=== PATIENT | male | born 1960 | race Caucasian/White ===

== ENCOUNTER 2017-07-22 08:52 | Outpatient (CLI) | payer MEDICARE | END 2017-07-22 08:53 | disposition home or self-care (01) | LOC: BICRAD 08:52 | PROVIDERS: ATTEND Family Medicine | DX: M25.551 Pain in right hip (principal); M16.11 Unilateral primary osteoarthritis, right hip ==

== ENCOUNTER 2018-04-16 07:03 | Day surgery (SDC) | payer MEDICARE ==
[2018-04-16] MEDS ORDERED: HYDROcodone/Acetaminophen 5/325 mg Tablet ONE (07:42)
--- NOTE | 2018-04-16 08:56 | RAD ---
LUMBAR SPINE 4 VIEWS: HISTORY: Low back pain. COMPARISON: 09/23/17. FINDINGS: Five lumbar-type vertebrae. Chronic partial compression of the L2 vertebral body is stable compared to the 09/23/17 exam. Other vertebral body heights are maintained. Minimal degenerative retrolisthesi s at the L2-3 ad L3-4 levels without abnormal translational motion upon flexion or extension, althoug h there is very little movement. Osteophytosis throughout the vertebral bodies and facets. Calcification over the calvarial structure s. Calcification over the arterial structures. IMPRESSION: 1. Partial compression of L2 vertebral body, stable. Partial compression of T11 vertebral body is s table compared to CT exam from 2011. 2. Lumbar spondylosis. 3. Atherosclerosis. POS: [facility]
--- NOTE | 2018-04-16 10:30 | RAD ---
LUMBAR MYELOGRAM: Date: 04/16/18 HISTORY: Back and bilateral leg pain. FINDINGS: After informed consent was obtained, the patient was prepped and draped in the normal sterile fashion . Local anesthesia was obtained with 1% Xylocaine. A L4-5 puncture was performed with a 5 22 gauge needle. A few drops of clear CSF fluid were obtained and subsequently 12 mL of Isovue-200 myelograph ic contrast were injected intrathecally with good opacification of the joint space. The patient miguel ated the procedure well. There were no immediate complications. IMPRESSION: Successful lumbar myelogram. Please see CT concerning findings. POS: [facility]
[2018-04-16] MEDS ORDERED: Iopamidol-M 200 41% 20 ML VIAL ONE (10:43)
--- NOTE | 2018-04-16 10:53 | CT ---
POSTMYELOGRAM CT OF THE LUMBAR SPINE PERFORMED WITH CONTRAST ENHANCEMENT: HISTORY: Back and bilateral leg pain. There are some mild compression changes of the superior end plate of L2 without bony retropulsion. T here are also moderate compression changes of the T11 vertebral body. The remainder of the vertebral bodies are normal in height. Disk spaces are all relatively well preserved with some disk narrowing at L1-2. T10-11: No evidence of bony retropulsion associated with the compression change at this level. T11-12: Unremarkable. T12-L1: Unremarkable. L1-2: No canal or foraminal stenosis. L2-3: No disk bulge, no canal or foraminal stenosis. L3-4: No significant disk bulge. Mild facet hypertrophic changes. No foraminal narrowing. L4-5: No significant canal or foraminal stenosis at this level. L5-S1: Degenerative facet changes without significant canal or foraminal stenosis. IMPRESSION: No signs of disk herniation or evidence of any significant canal or foraminal stenosis at any of the vertebral body levels. POS: [facility]
== END 2018-04-16 10:00 | disposition home or self-care (01) ==
LOC: RAD 07:03
PROVIDERS: ATTEND Physician Assistant Surgical
DX: M47.26 Other spondylosis with radiculopathy, lumbar region (principal); I70.90 Unspecified atherosclerosis; Z88.0 Allergy status to penicillin
CPT/HCPCS: 62304; 72110; 72132

== ENCOUNTER 2018-06-24 08:35 | Outpatient (CLI) | payer MEDICARE ==
--- NOTE | 2018-06-24 14:46 | NM ---
WHOLE BONE SCAN: DATE: 06/24/2018. COMPARISON: None. HISTORY: Back pain, wedge compression fracture of lumbar spine. TECHNIQUE: Anterior and posterior whole body imaging obtained following the intravenous administration of 31.7 m Ci Technetium 99m labeled MDP. FINDINGS: There is physiologic activity overlying the kidneys and urinary bladder. No focal area of abnormal r adiotracer activity overlies the spine. There is degenerative-type change involving the acetabular r chanda on the right. There is degenerative activity overlying the left knee and the right ankle. No ca lvarial lesions or rib lesions. IMPRESSION: Findings suggesting degenerative activity at the level of the right hip, right ankle, and left knee, which could be further assessed via radiographs. POS: [facility]
== END 2018-06-24 08:36 | disposition home or self-care (01) ==
LOC: NM 08:35
PROVIDERS: ATTEND Specialist
DX: M48.56XA Collapsed vertebra, not elsewhere classified, lumbar region, initial encounter for fracture (principal); M48.54XA Collapsed vertebra, not elsewhere classified, thoracic region, initial encounter for fracture
CPT/HCPCS: 78306; A9503

== ENCOUNTER 2018-11-04 13:17 | Outpatient (CLI) | payer MEDICARE ==
--- NOTE | 2018-11-04 14:32 | RAD ---
3 VIEWS LUMBAR SPINE: Date: 11/04/18 HISTORY: Closed compression fracture second lumbar vertebra. FINDINGS: Flexion, extension, and lateral views lumbar spine obtained. Comparison made to previous exam from 04/16/18. Flexion, extension, and neutral weightbearing views of lumbar spine demonstrate a stable compression fracture of the L2 level. This is unchanged since the previous exam from 04/16/18. No evidence of zackery or retrolisthesis seen on flexion or extension views. Anterior osteophytes also seen anterior to the L1 and L2 levels. IMPRESSION: Stable L2 compression fracture. POS: [facility]
== END 2018-11-04 13:18 | disposition home or self-care (01) ==
LOC: BICRAD 13:17
PROVIDERS: ATTEND Specialist
DX: S32.020A Wedge compression fracture of second lumbar vertebra, initial encounter for closed fracture (principal)
CPT/HCPCS: 72110

== ENCOUNTER 2019-02-28 08:49 | Outpatient (CLI) | payer MEDICARE ==
--- NOTE | 2019-02-28 10:24 | ULT ---
VENOUS DOPPLER ULTRASOUND OF THE RIGHT LOWER EXTREMITY: HISTORY: Right leg pain. Right calf pain, edema, and redness. TECHNIQUE: Murphy scale ultrasound with color flow and spectral Doppler imaging of the deep venous system of the r ight lower extremity was performed. FINDINGS: There is good flow, compression, and augmentation in the right common femoral, femoral, deep femoral, popliteal, posterior tibial, and greater saphenous veins. IMPRESSION: No evidence of deep vein thrombosis in the right lower extremity. POS: [facility]
== END 2019-02-28 08:50 | disposition home or self-care (01) ==
LOC: ULT 08:49
PROVIDERS: ATTEND Specialist
DX: I82.5Z1 Chronic embolism and thrombosis of unspecified deep veins of right distal lower extremity (principal)
CPT/HCPCS: 80306

== ENCOUNTER 2019-04-20 09:34 | Outpatient (CLI) | payer MEDICARE ==
--- NOTE | 2019-04-20 12:07 | CT ---
CTA ABDOMEN AND PELVIS AND LOWER EXTREMITIES WITH CONTRAST: Date: 04/20/19 Axial tomograms obtained following angio protocol with multiplanar reconstruction and 3D postprocessi ng. INDICATION: Peripheral vascular disease. Bilateral leg pain. FINDINGS: The abdominal aorta shows mild atherosclerotic change. No aneurysm or dissection. No stenosis seen at the origin of the celiac artery or superior mesenteric artery. Both renal arteries are patent withou t stenosis. Aortic bifurcation is patent with moderate atherosclerotic changes seen in both common iliac arteries . There is a stent in the left common iliac which appears patent. No evidence of significant stenosis . Left Lower Extremity: Left internal and external iliacs are patent without stenosis. Left common femoral unremarkable. Prof unda patent. Left superficial femoral artery is patent without evidence of significant atherosclerotic disease or stenosis. Left popliteal is unremarkable. Popliteal trifurcates below the knee and there is 3 vessel runoff to the ankle. Right Lower Extremity: Right internal and external iliacs are unremarkable. Right common femoral unremarkable. Right profunda patent. Right superficial femoral artery shows mild atherosclerotic disease without si gnificant stenosis. Right popliteal unremarkable. Popliteal trifurcates below the knee space and ther e is 3 vessel runoff to the right ankle. Soft Tissues: Lung bases clear. Liver, spleen, and pancreas are unremarkable. Adrenal glands and kidneys are unremarkable. Bowel loops unremarkable. IMPRESSION: Mild atherosclerotic changes seen in abdominal aorta and common iliac arteries. The left iliac artery stent appears patent. No significant stenosis identified. POS: [facility]
[2019-04-20] MEDS ORDERED: ISOVUE-370 76%-LOCM 1 ML ONE (20:37)
== END 2019-04-20 09:35 | disposition home or self-care (01) ==
LOC: BICCT 09:34
PROVIDERS: ATTEND Family Medicine
DX: I73.9 Peripheral vascular disease, unspecified (principal); M25.552 Pain in left hip; M25.551 Pain in right hip
CPT/HCPCS: 75635; Q9966

== ENCOUNTER 2019-05-24 11:23 | Day surgery (SDC) | payer MEDICARE ==
[2019-05-23 10:30] VITALS: BMI 40.1
[2019-05-24] MEDS ORDERED: Levofloxacin 500 mg/D5W 100 ml Premix Bag ONE (12:26)
[2019-05-24] MEDS ORDERED: Bupivacaine HCl 0.5%/Epinephrine 1:200,000/PF 30 ml Vial ONE (13:28)
[2019-05-24] MEDS ORDERED: Propofol 500 MG/50 ML VIAL ONE (13:41)
[2019-05-24] MEDS ORDERED: Fentanyl 100 MCG/2 ML VIAL ONE (13:44)
--- NOTE | 2019-05-24 20:03 | OP ---
DATE OF PROCEDURE: 05/24/2019 PREOPERATIVE DIAGNOSES: 1. Chronic pain syndrome. 2. Lumbar radiculopathy. POSTOPERATIVE DIAGNOSES: 1. Chronic pain syndrome. 2. Lumbar radiculopathy. PROCEDURE PERFORMED: SCS battery exchange. SPECIMENS REMOVED: Spinal cord stimulator battery generator x1 intact. BLOOD LOSS: Minimal. DESCRIPTION OF PROCEDURE: The patient was taken to the procedure room, placed prone on the procedure room table. A time-out was performed. We prepped the back with DuraPrep. Sterile drapes were applied. We anesthetized the skin above the battery site with 0.5% Marcaine with epinephrine. We used a 15 blade scalpel to make an incision and then blunt dissected this down to the battery pocket. The battery was removed. We used a torque wrench to loosen the battery from the leads. The leads were taken out. The battery was discarded. We got the new battery and connected the leads to it and tightened the leads with the torque wrench. Impedances were checked which were all good. We slipped the battery in the pocket easily. We approximated the fascial layer with 2-0 Vicryl suture in simple interrupted fashion. We used [place] for the skin. This was dressed with a sterile 4 x 4 and Medipore tape. The patient was taken to Day Stay under stable condition with no apparent complications noted at this time. Job ID: [id number]
== END 2019-05-24 15:35 | disposition home or self-care (01) ==
LOC: SDC 11:23
PROVIDERS: ATTEND Specialist
PROC: 0JPT0MZ Removal of Stimulator Generator from Trunk Subcutaneous Tissue and Fascia, Open Approach (ICD-10-PCS; principal; 2019-05-24)
PROC: 0JH70MZ Insertion of Stimulator Generator into Back Subcutaneous Tissue and Fascia, Open Approach (ICD-10-PCS; 2019-05-24)
DX: G89.4 Chronic pain syndrome (principal); M54.16 Radiculopathy, lumbar region; M19.90 Unspecified osteoarthritis, unspecified site; J44.9 Chronic obstructive pulmonary disease, unspecified; N40.0 Benign prostatic hyperplasia without lower urinary tract symptoms; F32.9 Major depressive disorder, single episode, unspecified; G47.30 Sleep apnea, unspecified; Z79.82 Long term (current) use of aspirin; Z79.899 Other long term (current) drug therapy; Z88.0 Allergy status to penicillin; Z88.1 Allergy status to other antibiotic agents; Z98.84 Bariatric surgery status
CPT/HCPCS: J0670; J1956; J2704; J3010

== ENCOUNTER 2019-06-28 09:46 | Inpatient (IN) | payer MEDICARE ==
[2019-06-27 15:59] VITALS: BMI 36.8
[~2019-06-28 09:46] MED LIST: Esmolol 100 MG/10 ML VIAL ONE; Lidocaine 1% PF 5 ML VIAL ONE; Ondansetron PF 4 MG/2 ML Vial ONE; PROPOFOL 200 MG/20 ML VIAL ONE; Rocuronium Bromide 10 MG/ML (10ML VIAL) ONE; Succinylcholine Chloride 20 MG/ML 10 ml SYRINGE FS ONE; ePHEDrine/0.9% NaCl/PF SYRINGE 50 mg/10 ml ONE
[2019-06-28] MEDS ORDERED: Fentanyl 100 MCG/2 ML VIAL ONE ×3 (10:33→15:28)
[2019-06-28] MEDS ORDERED: EPINEPHrine 1 MG/ML AMP ONE (10:48)
[2019-06-28] MEDS ORDERED: Bupivacaine PF 0.5% 30 ML VIAL ONE (10:48)
[2019-06-28] MEDS ORDERED: Levofloxacin 500 mg/D5W 100 ml Premix Bag ONE (11:56)
[2019-06-28] MEDS ORDERED: Propofol 500 MG/50 ML VIAL ONE (11:58)
[2019-06-28] MEDS ORDERED: Midazolam HCl 2 mg/2 ml Vial ONE (12:21)
[2019-06-28] MEDS ORDERED: Ketamine 50 MG/ML (10ML VIAL) ONE (12:21)
--- NOTE | 2019-06-28 12:24 | PRG ---
DATE OF SERVICE: 06/28/2019 Mr. Cooney is known to my colleague, Dr. Sheets. He had a spinal cord stimulator placed a few weeks ago. He has developed fluctuance in his pulse generator pocket and as such, there is concern about possible infection. Dr. Sheets and I have discussed his case. There was question regarding the benefit of removal of his leads in generator. I will assist in this regard. Job ID: [id number]
[2019-06-28] MEDS ORDERED: Neomycin-Polymyxin 1 ML AMP ONE (13:16)
[2019-06-28] MEDS ORDERED: Fleet Enema 133 ML BOT PR PRN (14:06)
[2019-06-28] MEDS ORDERED: Bisacodyl 10 MG SUPP PR PRN (14:06)
[2019-06-28] MEDS ORDERED: HYDROcodone/Acetaminophen 10/325 mg Tablet PO PRN (14:06)
[2019-06-28] MEDS ORDERED: Mag-Al 1200 mg/1200 mg/30 ML UDCUP PO PRN (14:06)
[2019-06-28] MEDS ORDERED: Acetaminophen 325 MG TAB PO PRN (14:06)
[2019-06-28] MEDS ORDERED: Milk Of Magnesia 30 ML UDCUP PO PRN (14:06)
[2019-06-28] MEDS ORDERED: Promethazine HCl 25 MG/ML VIAL IM/IV PRN (15:05)
[2019-06-28] MEDS ORDERED: PACU-Morphine 4MG/ML VIAL SLOW IVP PRN (15:05)
[2019-06-28] MEDS ORDERED: Morphine Sulfate 2 MG/ML SYRINGE SLOW IVP PRN (15:05)
[2019-06-28] MEDS ORDERED: Non-Formulary Medication 1 EACH PO PRN (15:05)
[2019-06-28] MEDS ORDERED: Ondansetron HCl/PF 4 MG/2 ML Vial IVP PRN (15:05)
[2019-06-28] MEDS: Sodium Chloride 0.9% 1,000 ML IV SCH (17:29)
[2019-06-28] MEDS: HYDROcodone/Acetaminophen 10/325 mg Tablet PO PRN ×2 (17:34→22:21)
[2019-06-28] MEDS: Cefepime 2 GM in Sodium Chloride 0.9% 100 ML IVPB SCH (22:22)
[2019-06-28] MEDS: metroNIDAZOLE 500 MG in Premix Bag 1 BAG IVPB SCH (23:04)
--- NOTE | 2019-06-28 23:52 | OP ---
DATE OF PROCEDURE: 06/28/2019 PROCEDURE: Urgent removal of spinal cord stimulator battery as well as paddle leads due to infection. PREOPERATIVE DIAGNOSES: 1. Chronic pain syndrome. 2. Lumbar radiculopathy. 3. Abscess. POSTOPERATIVE DIAGNOSES: 1. Chronic pain syndrome. 2. Lumbar radiculopathy. 3. Abscess. CO-SURGEON: Dr. Charlton. PROCEDURES: 1. Removal of spinal cord stimulator battery. 2. Removal of paddle lead. PROCEDURE IN DETAIL: The patient was taken to the procedure room, placed prone on the procedure room table. A time-out was performed. We prepped the back with DuraPrep and sterile drapes were applied. We anesthetized the skin above the paddle lead and Dr. Charlton proceeded to remove the paddle lead. Please refer to Dr. Charlton's operative note for that portion. He cut the lead at that level. We then proceeded to open the battery pocket using a 10 blade scalpel. Suction was used to remove the purulent fluid. The battery was removed easily and we took the lead wires out with it. We then irrigated the pocket copiously with bacitracin saline. We then made several incisions through the scar tissue in the pocket to allow adequate blood flow. We placed vancomycin powder 500 mg inside the pocket. We then used 2-0 Vicryl suture to approximate the fascial layers and 3-0 nylon and a vertical mattress was used for the skin. A Jc-Devine drain was placed as well at this level. The patient was taken to PACU under stable condition. Job ID: [id number]
[2019-06-29] MEDS: HYDROcodone/Acetaminophen 10/325 mg Tablet PO PRN ×5 (04:43→21:18)
[2019-06-29] MEDS: metroNIDAZOLE 500 MG in Premix Bag 1 BAG IVPB SCH (04:44)
[2019-06-29] MEDS: Sodium Chloride 0.9% 1,000 ML IV SCH (08:10)
[2019-06-29] MEDS: tiZANidine HCl 4 MG TAB PO PRN ×2 (08:11→21:30)
--- NOTE | 2019-06-29 08:26 | OP ---
DATE OF PROCEDURE: 06/28/2019 SUPERVISOR [employer] MAN[employer]FACTURE: Luis Vargas PA-C. Note that I did this surgery in conjunction with Dr. Michael Sheets. PREPROCEDURE DIAGNOSIS: Concern of spinal cord stimulator battery pack infection. POSTPROCEDURE DIAGNOSIS: Concern of spinal cord stimulator battery pack infection. PROCEDURES PERFORMED: 1. Removal of spinal cord stimulator thoracic leads. 2. Removal of pulse generator. 3. Irrigation and debridement of wound and Re-closure over drain with intraoperative cultures. DESCRIPTION OF PROCEDURE: After informed consent was obtained from the patient, the patient was brought to the OR. Proper patient, pause, and identification were carried out. He was placed under excellent general endotracheal anesthesia and positioned prone on the OR table. All appropriate points were padded. I identified the prior thoracic wound and Dr. Sheets identified the battery pack wound, he will be dictating that portion. The thoracic midline wound dorsally was sterilely cleansed, prepared, and draped. Proper patient, pause, and identification were carried out. The wound was then opened with a combination of sharp, monopolar, and blunt dissection and I exposed the spinal cord stimulator lead and its entirety and removed the paddle. All [address] contact [address] in [address]. The wound was copiously irrigated and the wires were removed by Dr. Sheets from distal to proximal. Job ID: [id number]
[2019-06-29] MEDS: Cefepime 2 GM in Sodium Chloride 0.9% 100 ML IVPB SCH (08:43)
[2019-06-29] MEDS ORDERED: Cipro 250 MG TAB PO SCH (12:00)
--- NOTE | 2019-06-29 13:28 | CON ---
DATE OF CONSULTATION: 06/29/2019 REASON FOR CONSULTATION: Spinal cord stimulator generator pocket infection. HISTORY OF PRESENT ILLNESS: A 58-year-old, history of obesity with prior sleeve gastrectomy and chronic low back pain syndrome, who has had a spinal cord generator with leads placed in the epidural area for the past 11 years, and recently, the generator was exchanged. Unfortunately, the patient has developed postoperative infection with the organisms described below. He was admitted and had all the hardware removed by Dr. Sheets and Dr. Charlton. Currently, he is having moderate pain in the lower back. No headaches, visual symptoms, sore throat, odynophagia , or dysphagia. No dental pain. No shortness of breath, cough, or sputum production. No abdominal pain. He has regained about 50% of his pre-sleeve gastrectomy weight. Still taking his vitamins regularly. No other neurological symptoms. No genitourinary symptoms or constipation. PAST MEDICAL HISTORY: Includes obesity, sleeve gastrectomy, chronic hepatitis C treated and cured with interferon, peripheral vascular disease with prior intervention, and obstructive sleep apnea. He has had also knee surgery, left side; thumb re-implantation after amputation; cholecystectomy; bone spur; shoulder surgery; and laminectomy x2. Scrotal abscess a few years ago. ALLERGIES: 1. PENICILLIN. 2. SULFA DRUGS. SOCIAL HISTORY: Former smoker. Used to abuse drugs in the long distant past, but is abstinent for many years now including from alcoholic beverages. He is disabled. PHYSICAL EXAMINATION: VITAL SIGNS: T-max 99, blood pressure 130/70, pulse 78, respirations 18, O2 saturation 94% to 96%. SKIN: With the postoperative findings. No drains were left in place. The patient has a peripheral IV access. LYMPHATICS: No lymphadenopathy. HEENT: Ocular movements are conjugate. Oral cavity is normal. NECK: Supple. LUNGS: Symmetric, clear breath sounds. HEART: S1 and S2. Regular rate. No S3 or S4. ABDOMEN: Soft. Moderate distention. Somewhat tympanitic, but not tender. No ascites. No organomegaly. No bladder distention. GENITAL: Not particularly remarkable. EXTREMITIES: Chronic osteoarthrosis in knees and ankles. Stasis dermatitis with venous insufficiency in lower extremities. NEUROLOGIC: Nonfocal including cognitive function. LABORATORY DATA: Selected labs include white cell count of 10.8, hemoglobin 14, platelets 177 with 64% neutrophils, 22% lymphocytes. Chemistry with glucose 114 , creatinine 0.95. Liver profile, normal. Albumin 4.2. Urinalysis was not repeated. He has a hepatitis C RNA PCR quant many years ago, which was negative after treatment. IMAGING STUDIES: There is an aorta with runoff CTA done in April this year, and that showed mild atherosclerotic changes. No significant stenosis identified. A vascular ultrasound from March 07, with no DVT noted. ASSESSMENT: 1. Obesity with prior sleeve gastrectomy. 2. Chronic low back pain with longstanding spinal cord stimulator, which had generator replacement recently, now with postoperative infection with Serratia marcescens with a fairly broad susceptibility profile except for cefoxitin. DISCUSSION: The patient has had the removal of all the hardware, and the infection seems to be limited to the soft tissues. No evidence of bacteremia or meningitis. Recommend treating from 7 to 10 days with oral ciprofloxacin. Discharge planning whenever clinically stable. Job ID: [id number] MTDD
--- NOTE | 2019-06-29 18:13 | PRG ---
DATE OF SERVICE: 06/29/2019 SUBJECTIVE: The patient is postoperative day 1 status post abscess drainage from battery pocket of spinal cord stimulator, removal of spinal cord stimulator generator, and removal of electrode array. The patient does have a JOY drain in place. He is able to get out of bed to chair and walk short distances. He does complain of pain at the incision sites with movement. Currently, states that the hydrocodone is helping; however, it does not help with when he is moving or trying to walk. Denies any fever or chills currently. Denies constipation or diarrhea. He has been able to eat. Denies shortness of breath or chest pain. OBJECTIVE: VITAL SIGNS: Currently, temperature 97.8 degrees Fahrenheit, afebrile overnight, pulse of 74 currently, respirations 20, O2 saturation is 95% on room air, blood pressure is 126/73. Vital signs were stable overnight. GENERAL: Alert and oriented x4, sitting in the chair, in no acute distress currently. CHEST: Symmetric. Nonlabored respirations. ABDOMEN: Soft, nontender, and nondistended. MUSCULOSKELETAL: Moving all extremities. 5/5 strength in bilateral upper and lower extremities. No clubbing, cyanosis, or edema in the extremities. Wounds checked, clean, dry, and intact. Drain is currently draining serosanguineous fluid. Drain has drained 40 mL overnight. NEUROLOGIC: Cranial nerves 2 through 12 are grossly intact. Moving all extremities. 5/5 strength in bilateral upper and lower extremities. Reflexes in the patellar are 2+. Absent Achilles reflexes bilaterally and equal. LABORATORY DATA: Cultures which were taken on 06/27/2019, have returned with Serratia marcescens. Anaerobic culture is pending. We have susceptibility as well. ASSESSMENT: 1. Abscess. 2. Chronic pain syndrome. 3. Lumbar radiculopathy. PLAN: Infectious Disease has been consulted and has seen the patient. We are awaiting recommendations. Organism has been identified as Serratia marcescens which is in the same family as Klebsiella pneumoniae which he had positive in the culture of his scrotum in 2015 and 2016 again. I believe that he may be a carrier for this bacteria, which is why it seeded to the battery site. He is afebrile and denies any chills. No signs of sepsis currently. I believe the antibiotics that he is on are helping. We will narrow down the antibiotics based on sensitivities. Chronic pain syndrome and lumbar radiculopathy. The patient has had chronic lower back pain as well as bilateral lower extremity pain for years. Previous CT myelogram did not show any overt neural compression causing this pain. Dr. 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 I am going to get a thoracic and lumbar MRI with and without contrast to first look at this AV malformation more closely and second to look for any abscess which may have seeded the epidural space from the battery pocket. MEDICATIONS: The patient continues to have pain despite hydrocodone. He has had 2 of the 10/325 mg tablets 4 times in the last 24 hours. Last dose was at 9 this morning. He continues to have pain. He has also taken tizanidine for muscle relaxation which is not helping as much as we would like. I will add on a fentanyl 12 mcg patch to help him with the postoperative pain. Continue hydrocodone at the current dose. As far as the antibiotics, we have narrowed it down and placed him on Cipro as a sole antibiotic recommended by Dr. May, Infectious Disease. Dulcolax and Maalox for prophylaxis. SCDs and out of bed to chair for DVT prophylaxis. We will keep him overnight. Job ID: [id number]
[2019-06-29] MEDS: Cipro 250 MG TAB PO SCH (19:33)
--- NOTE | 2019-06-29 20:05 | PRG ---
DATE OF SERVICE: 06/29/2019 This is a postoperative recheck. Mr. Cooney is postoperative day #1 having undergone explantation of spinal cord stimulator and subsequently, it is in the upper thoracic region as well as into the right buttock region. The patient had infected spinal cord stimulator battery, it is the reason for explantation yesterday with Dr. Charlton and Dr. Sheets. Currently, the patient has some pain control issues, which Dr. Sheets providing. From Neurosurgical standpoint, the patient follows commands in all 4 extremities, but does appear to be in some pain. His incisions are very clean and dry. He does have a JOY drain in place. He has been placed on multiple antibiotics without broad-spectrum coverage, although Infectious Disease has been consulted, and they can help curtail. The antibiotics based on the cultures that were obtained. Of note, when reviewing the patient's CT myelogram of the thoracic spine, there may appear to be some dural arteriovenous malformation. It is difficult to assess on CT myelogram, and it would be more beneficial to get MRIs of the thoracic and lumbar spines with and without contrast non-emergently as the patient does not have any neurologic deficit. We will follow with the patient and at this time, we will defer his primary care to Dr. Sheets, although we are happy to help in managing the patient. Again, please call with any changes in the patient's neurologic status. Job ID: [id number]
[2019-06-30] MEDS: Sodium Chloride 0.9% 1,000 ML IV SCH (04:43)
[2019-06-30] MEDS: Cipro 250 MG TAB PO SCH ×2 (05:25→20:37)
[2019-06-30] MEDS: HYDROcodone/Acetaminophen 10/325 mg Tablet PO PRN ×4 (05:26→17:19)
[2019-06-30] MEDS: tiZANidine HCl 4 MG TAB PO PRN ×2 (08:28→16:07)
--- NOTE | 2019-06-30 09:21 | PRG ---
DATE OF SERVICE: 06/30/2019 Mr. Cooney is postoperative day #2, having undergone infected spinal cord stimulator battery removal and subsequent lead removal in the mid thoracic region. The patient complains mainly of thoracic incisional pain. He has been up walking. His JOY drain, it appears over the last 24 hours has put a roughly 20 mL and there is about 10 mL in his JOY bulb at this time. Plan for MRIs of the thoracic and lumbar spines. Again, we are concerned for developmental of venous arterial malformation. We will follow up on the studies in hopes that they will be completed today. The patient remains neurologically intact and really does look more comfortable today than he did yesterday. He is on Cipro as per Infectious Diseases for spinal cord stimulator pocket abscess grew out Serratia. We will follow up with the patient, but please call up with any changes in the patient's neurologic status or other questions. Job ID: [id number]
[2019-06-30] MEDS ORDERED: PROPOFOL 200 MG/20 ML VIAL ONE (13:08)
[2019-06-30] MEDS ORDERED: Fentanyl 250 MCG/5 ML VIAL ONE (17:50)
[2019-06-30] MEDS ORDERED: Midazolam HCl 2 mg/2 ml Vial ONE (17:50)
--- NOTE | 2019-06-30 19:56 | MRI ---
EXAM: MRI Lumbar Spine W WO Con PROVIDED CLINICAL HISTORY: Evidence for epidural abscess COMPARISON: None FINDINGS: Lumbar alignment appears normal. Vertebral body heights appear preserved. Regional marrow signal appe ars normal. There is no significant central canal or foraminal narrowing apparent throughout. Noncircumscribed patchy signal alteration on fluid sensitive sequences involving the subcutaneous raghu pose layer of the back without evidence for focal fluid collection to suggest abscess. The conus medullaris is normal in signal and terminates at an appropriate level. Multilevel facet arthrosis is noted. Endplate degenerative changes are seen at L1-2. IMPRESSION: No evidence for an acute process.
--- NOTE | 2019-06-30 20:00 | MRI ---
EXAM: MRI Thoracic Spine W WO Con PROVIDED CLINICAL HISTORY: Evidence for epidural abscess COMPARISON: None FINDINGS: Evaluation is limited by patient motion. Thoracic alignment appears normal. Vertebral body heights ap pear preserved. No focal concerning regional marrow signal abnormality apparent. There is no significant central canal or foraminal narrowing apparent. There is a 2.7 cm cc by 3.1 cm transverse by 1.6 cm AP fluid collection with partial rim enhancement at the dorsal aspect of the spinous processes of T8 and T9. There is no evidence for epidural fluid collection. The thoracic spinal cord appears normal. IMPRESSION: 3.1 cm rim-enhancing fluid collection within the soft tissues dorsal to the spinous processes of T8 a nd T9, compatible with soft tissue abscess. No evidence for epidural abscess.
[2019-07-01] MEDS: HYDROcodone/Acetaminophen 10/325 mg Tablet PO PRN (02:27)
[2019-07-01] MEDS: Cipro 250 MG TAB PO SCH (05:26)
[2019-07-01] MEDS: Sodium Chloride 0.9% 1,000 ML IV SCH (05:31)
[2019-07-01] MEDS: tiZANidine HCl 4 MG TAB PO PRN (05:35)
[2019-07-01 11:20] VITALS: BP 115/69; TEMP 97.8
--- NOTE | 2019-07-01 13:29 | PRG ---
DATE OF SERVICE: 07/01/2019 Mr. Cooney is postoperative day #3 following explantation of spinal cord stimulator. We obtained a thoracic and lumbar spine MRI, not for assessment of infection as indicated in the reasoning, but rather to assess for dural AV fistula. I see no evidence of signal abnormality in the cord nor do I see any evidence of expansion or abnormal vascularity. His CT myelogram hinted at a potential increased vascularity in the thoracolumbar region. I do not see any evidence of this further. I do not see any evidence of compression of his neural elements where there is a radiology report of abscess in the thoracic region I disagree. We operated on him just 3 days ago. There was no abscess there. This is normal postoperative seroma. We went over do's and don'ts in the postoperative period. He will continue on oral antibiotics. We will plan followup in approximately 14 to 21 days for suture removal. Job ID: [id number]
== END 2019-07-01 13:13 | disposition home or self-care (01) | DRG 29 ==
LOC: SDC 09:46 → SURG A 14:18 → OBSVTOIN 06-30 12:16
PROVIDERS: ADMIT Specialist; ATTEND Specialist
PROC: 00PV0MZ Removal of Neurostimulator Lead from Spinal Cord, Open Approach (ICD-10-PCS; principal; 2019-06-28)
PROC: 0JPT0MZ Removal of Stimulator Generator from Trunk Subcutaneous Tissue and Fascia, Open Approach (ICD-10-PCS; 2019-06-28)
PROC: 0W9L00Z Drainage of Lower Back with Drainage Device, Open Approach (ICD-10-PCS; 2019-06-28)
DX: T85.733A Infection and inflammatory reaction due to implanted electronic neurostimulator of spinal cord, electrode (lead), initial encounter (principal); L02.212 Cutaneous abscess of back [any part, except buttock and flank]; M47.26 Other spondylosis with radiculopathy, lumbar region; G89.4 Chronic pain syndrome; E66.9 Obesity, unspecified; Z88.0 Allergy status to penicillin; Z88.2 Allergy status to sulfonamides; Z87.891 Personal history of nicotine dependence; Z98.84 Bariatric surgery status; Z68.38 Body mass index [BMI] 38.0-38.9, adult; B96.1 Klebsiella pneumoniae [K. pneumoniae] as the cause of diseases classified elsewhere
CPT/HCPCS: 36415; 72157; 72158; 80053; 85025; 87070; 87077; 87186; 87205; 99214; G0463; J0171; J0692; J1956; J2001; J2250; J2405; J2704; J3010; J3370; J3490; S0020

== ENCOUNTER 2019-07-25 12:31 | Outpatient (CLI) | payer MEDICARE ==
--- NOTE | 2019-07-25 15:15 | RAD ---
PA AND LATERAL CHEST: HISTORY: Dyspnea. FINDINGS: Heart size is within normal limits. There are atherosclerotic changes of the aorta. Chronic appearing interstitial lung changes are seen. No focal infiltrates. Mild arthritic changes of the spine. IMPRESSION: Chronic appearing lung change. POS: [facility]
== END 2019-07-25 12:32 | disposition home or self-care (01) ==
LOC: RAD 12:31
PROVIDERS: ATTEND Internal Medicine Critical Care Medicine
DX: R06.00 Dyspnea, unspecified (principal)
CPT/HCPCS: 71046

== ENCOUNTER 2020-03-15 10:02 | Day surgery (SDC) | payer MEDICARE ==
[2020-03-13 13:16] VITALS: BMI 38.6
[2020-03-15] MEDS ORDERED: Levofloxacin 500 mg/D5W 100 ml Premix Bag ONE (10:47)
[2020-03-15] MEDS ORDERED: Fentanyl 100 MCG/2 ML VIAL ONE (10:50)
[2020-03-15] MEDS ORDERED: Ondansetron PF 4 MG/2 ML Vial ONE (11:27)
[2020-03-15] MEDS ORDERED: Rocuronium Bromide 10 MG/ML (10ML VIAL) ONE (11:27)
[2020-03-15] MEDS ORDERED: Dexamethasone 20 MG/5 ML VIAL ONE (11:27)
[2020-03-15] MEDS ORDERED: PHENYLEPHRINE-NS 100 MCG/ML 10 ML SYRINGE ONE (11:27)
[2020-03-15] MEDS ORDERED: EPHEDRINE 25 MG/5 ML SYRINGE ONE (11:27)
[2020-03-15] MEDS ORDERED: Succinylcholine Chloride 20 MG/ML 10 ml SYRINGE FS ONE (11:27)
[2020-03-15] MEDS ORDERED: PROPOFOL 200 MG/20 ML VIAL ONE (11:27)
[2020-03-15] MEDS ORDERED: Lidocaine 1% PF 5 ML VIAL ONE (11:27)
[2020-03-15] MEDS ORDERED: EPINEPHrine 1 MG/ML AMP ONE (11:28)
[2020-03-15] MEDS ORDERED: Bupivacaine PF 0.5% 30 ML VIAL ONE (11:28)
[2020-03-15] MEDS ORDERED: methylPREDNISolone Acetate 40 mg/ml Vial ONE (13:06)
[2020-03-15] MEDS ORDERED: Sodium Chloride 0.9% 10 ML ONE (13:09)
--- NOTE | 2020-03-15 15:23 | RAD ---
Radiograph thoracic spine 2 views: 03/15/2020 HISTORY: 59-year-old male with mid back pain FINDINGS: A total of 6 fluoroscopic small [id number] images obtained with C-arm. There is compression fracture with anterior wedging, and maximum anterior loss of height of approxima tely 50%. This is noted on lateral view of chest radiograph of 07/25/2019 and is approximately T11. There are 2 locations of multiple loops of wire coiled with electrodes, apparently within the spinal canal. One of these is centered at this compression fracture level, while the other is located 3 levels caudal to that in the lumbar spine. IMPRESSION: 1. Old compression fracture of one of the lower thoracic vertebrae, approximately T11. 2. Multiple electrical leads in the spinal canal at lower thoracic spine and at another location in t he lumbar spine..
[2020-03-15] MEDS ORDERED: HYDROcodone/Acetaminophen 5/325 mg Tablet ONE (16:08)
--- NOTE | 2020-03-15 22:15 | OP ---
DATE OF PROCEDURE: 03/15/2020 PREOPERATIVE DIAGNOSES: 1. Complex regional pain syndrome. 2. Chronic pain syndrome. 3. Lumbar radiculopathy. POSTOPERATIVE DIAGNOSES: 1. Complex regional pain syndrome. 2. Chronic pain syndrome. 3. Lumbar radiculopathy. PROCEDURE PERFORMED: 1. Spinal cord stimulator generator implant. 2. Spinal cord stimulator lead implant. 3. Programming. 4. Fluoro. SPECIMENS: None. ESTIMATED BLOOD LOSS: 5 mL. DESCRIPTION OF PROCEDURE: The patient was taken to the procedure room, placed prone on the procedure room table. After induction of general anesthesia, a time-out was performed. We prepped the back with DuraPrep and sterile drapes were applied. Using fluoroscopy, we located the T11-12 interspace. We used a paramedian technique with a 14-gauge supplied Touhy needle to advanced to engage in the interspinous ligament. We then used lost resistance to air to gain access to the epidural space. We threaded a 4-contact dorsal root ganglia down lead through a sheath into the needle and out the T11 foramen, took lateral views to ensure that this was over the dorsal root ganglion. We then created a double loop in the epidural space as an anchor. We did the exact same technique on the contralateral side of T11 and on the bilateral L2 as well. The battery pocket was made by anesthetizing the skin over the left upper buttock. We blunt dissected down to Faisal's fascia and dissected inferior and superiorly. We used a tunneling device to tunnel the leads through this into the battery pocket. One of the leads at T11 pulled out at this point and it was deemed too short, therefore, we switched in to a 90 cm lead and used the exact same technique as described above to achieve access again. This was tunneled to the battery pocket and had adequate slack at this point. We connected them to the battery and torqued the screws down to fixate them to the battery. Stimulation was performed and all impedances were checked which were all good. The battery was placed inside the pocket. We placed vanc powder inside the pocket and inside the entry holes. We approximated the fascial layers with 2-0 Vicryl suture and in a simple interrupted fashion with multiple layers. We used 3-0 repeat Vicryl. For a subcuticular stitch, we used Dermabond as an occlusive dressing for all incision points. Once this dried, we put sterile 4x4s as well as Medipore tape on top of this. The patient was taken to recovery under stable condition. Job ID: [id number]
== END 2020-03-15 16:35 | disposition home or self-care (01) ==
LOC: SDC 10:02
PROVIDERS: ATTEND Specialist
PROC: 0JH73BZ Insertion of Single Array Stimulator Generator into Back Subcutaneous Tissue and Fascia, Percutaneous Approach (ICD-10-PCS; principal; 2020-03-15)
PROC: 00HU3MZ Insertion of Neurostimulator Lead into Spinal Canal, Percutaneous Approach (ICD-10-PCS; 2020-03-15)
DX: G90.50 Complex regional pain syndrome I, unspecified (principal); G89.4 Chronic pain syndrome; M54.16 Radiculopathy, lumbar region; Z79.1 Long term (current) use of non-steroidal anti-inflammatories (NSAID); Z79.82 Long term (current) use of aspirin; Z79.899 Other long term (current) drug therapy; Z88.0 Allergy status to penicillin; Z88.2 Allergy status to sulfonamides
CPT/HCPCS: 72070; 76000; C1767; J0171; J1100; J1956; J2405; J2704; J2920; J3010; J3370; S0020

== ENCOUNTER 2020-06-07 06:45 | Outpatient (CLI) | payer MEDICARE ==
[2020-06-07 22:56] LABS: SARS-CoV-2 MS2 Positive; SARS-CoV-2 N Gene Negative; SARS-CoV-2 S Gene Negative; SARS-CoV-2 by NAA Not Detected (NotDetected); SARS-CoV-2 orf1ab Negative
== END 2020-06-07 06:46 | disposition home or self-care (01) ==
LOC: LABBT 06:45
PROVIDERS: ATTEND Specialist
DX: Z01.812 Encounter for preprocedural laboratory examination (principal); Z20.828 Contact with and (suspected) exposure to other viral communicable diseases
CPT/HCPCS: 87635; U0003

== ENCOUNTER 2020-06-12 10:06 | Day surgery (SDC) | payer MEDICARE ==
[~2020-06-12 10:06] MED LIST changes: -Esmolol 100 MG/10 ML VIAL ONE; +Glycopyrrolate 0.2 MG/ML 5 ML SYRINGE ONE; +Ketorolac Tromethamine 30 MG/ML VIAL ONE; +PHENYLEPHRINE-NS 100 MCG/ML 10 ML SYRINGE ONE; +Succinylcholine 200 MG/10 ml SYRINGE FS ONE; -Succinylcholine Chloride 20 MG/ML 10 ml SYRINGE FS ONE; +ePHEDrine 50 MG/ML VIAL ONE; -ePHEDrine/0.9% NaCl/PF SYRINGE 50 mg/10 ml ONE
[2020-06-12] MEDS ORDERED: CEFAZOLIN 1 GM VIAL ONE (10:19)
[2020-06-12] MEDS ORDERED: Sodium Chloride 0.9% 0 ML ONE ×2 (10:19→11:33)
[2020-06-12] MEDS ORDERED: Lidocaine 1% (PF) 30 ML VIAL ONE (11:33)
[2020-06-12] MEDS ORDERED: methylPREDNISolone Acetate 40 mg/ml Vial ONE (11:33)
[2020-06-12] MEDS ORDERED: Bupivacaine PF 0.5% 30 ML VIAL ONE (11:33)
[2020-06-12] MEDS ORDERED: EPINEPHrine 1 MG/ML AMP ONE (11:33)
[2020-06-12] MEDS ORDERED: Midazolam HCl 2 mg/2 ml Vial ONE (11:47)
[2020-06-12] MEDS ORDERED: Fentanyl 100 MCG/2 ML VIAL ONE (11:47)
[2020-06-12] MEDS ORDERED: Vancomycin 1.5 GRAM/300 ML BAG ONE (12:29)
--- NOTE | 2020-06-12 16:31 | RAD ---
THORACIC SPINE SERIES: 06/12/20 HISTORY: Dorsal column stimulator revision. There are C-arm films which show stimulator leads coiled with two leads positioned extending lateral ly at what appears to be the T11-12 level. There is another lead which is seen extending laterally in the lumbar spine at approximately the L2 level. IMPRESSION: Revision of lead placement. POS: AH
--- NOTE | 2020-06-12 17:45 | OP ---
DATE OF PROCEDURE: 06/12/2020 PREOPERATIVE DIAGNOSES: 1. Chronic pain syndrome. 2. Complex regional pain syndrome. 3. Lumbar radiculopathy. POSTOPERATIVE DIAGNOSES: 1. Chronic pain syndrome. 2. Complex regional pain syndrome. 3. Lumbar radiculopathy. PROCEDURE PERFORMED: 1. Spinal cord stimulator lead removal x1. 2. Spinal cord stimulator lead removal and replacement x1. 3. SCS anchoring x3. SPECIMENS REMOVED: SCS lead x2 intact. ESTIMATED BLOOD LOSS: 10 mL. DESCRIPTION OF PROCEDURE: The patient was taken to the procedure room, induced under anesthesia and then placed prone on the procedure room table. Sterile drapes were applied. A time-out was performed and then the back was prepped with DuraPrep and sterile drapes were applied. We made an incision at the battery pocket and blunt dissected this down to the pocket level. We took the battery out and irrigated the pocket with vancomycin with 3 mL of Marcaine 0.5% with epinephrine. We left this in the pocket. We then turned our attention to the left L2 lead. We gently pulled on the left L2 lead from the battery pocket and this was removed easily without any tension. This was removed intact. We then took out the right T11 lead gently and this was removed intact without any problems. We then inserted the supplied 14-gauge Touhy needle in a paramedian technique into the T12-L1 interspace right paramedian. Once in the epidural space, we inserted a sheath into the epidural space and advanced the lead into the right T11 foramen. The lead was passed through the foramen very easily on the first pass. Sheath was removed and a double loop was performed in the epidural space. We then took the sheath out, taking care not to move the leads. We anesthetized the skin, where the T11-T12 interspace was, then made a vertical incision and blunt dissected this down to the fascia. We took the needle out and left the lead in place. We then blunt dissected and revealed the lead at the incision that was made. We took the lead from the skin incision and passed it to the vertical incision that was made. We then blunt dissected towards the right to reveal the left T11 lead and brought this down to the skin. We inserted two anchors over these leads and took them down to fascia. We then secured them to the fascia with 2-0 silk suture x2 each. When we tucked on them using continuous fluoro and the leads did not move. We then made a vertical incision after anesthetizing the skin at L2-L3. We blunt dissected this down to the fascia layer and discovered the right L2 lead. We brought this from the battery pocket to the incision that was just made. We anchor over this and we secured it to the fascia using 2-0 silk suture x2. We tucked it under continuous fluoro and the lead did not move. We took final AP and lateral images to reveal proper lead placement. We then used a tunneling device to bring the T11 leads to the L2 vertical incision that was made. We placed a tension relief loop at T11-T12 and then we connected extensions to all 3 leads at the L2-L3 junction. These were all tested and the impedances were good. We then created another tension relief loop for all 3 leads and tunneled these leads to the battery pocket. These were connected to the battery and impedances were checked, which were all good. We placed the battery into the pocket easily. We approximated the fascial layer in multiple layers using 2-0 Vicryl suture in horizontal mattress and simple interrupted stitches. We then used a 3-0 Rapide for a subcuticular stitch to approximate the skin. Dermabond was placed over these incisions and they were allowed to dry. Sterile 4 x 4s and Medipore tape was placed over this and the patient was taken to the Day Stay after awoken from anesthesia with no complications noted at this time. Job ID: [id number]
== END 2020-06-12 19:20 | disposition home or self-care (01) ==
LOC: SDC 10:06
PROVIDERS: ATTEND Specialist
PROC: 00WU3MZ Revision of Neurostimulator Lead in Spinal Canal, Percutaneous Approach (ICD-10-PCS; principal; 2020-06-12)
DX: G89.4 Chronic pain syndrome (principal); G90.59 Complex regional pain syndrome I of other specified site; M47.26 Other spondylosis with radiculopathy, lumbar region; G47.30 Sleep apnea, unspecified; F10.11 Alcohol abuse, in remission; M19.90 Unspecified osteoarthritis, unspecified site; J44.9 Chronic obstructive pulmonary disease, unspecified; F32.9 Major depressive disorder, single episode, unspecified; N40.0 Benign prostatic hyperplasia without lower urinary tract symptoms; K21.9 Gastro-esophageal reflux disease without esophagitis; F17.210 Nicotine dependence, cigarettes, uncomplicated; Z79.82 Long term (current) use of aspirin; Z79.891 Long term (current) use of opiate analgesic; Z79.899 Other long term (current) drug therapy; Z88.0 Allergy status to penicillin; Z88.1 Allergy status to other antibiotic agents; Z88.2 Allergy status to sulfonamides
CPT/HCPCS: 72070; 76000; J0171; J0690; J1885; J2001; J2250; J2405; J2704; J2920; J3010; J3370; J3490; J7620; S0020

== ENCOUNTER 2020-08-16 09:43 | Observation (INO) | payer MEDICARE ==
[2020-08-16] MEDS ORDERED: Fentanyl 100 MCG/2 ML VIAL ONE (10:11)
[2020-08-16] MEDS ORDERED: Diazepam 10 MG/2 ML SYRINGE ONE (10:11)
[2020-08-16 11:04] LABS: #Eosinphils 0.2 thou/uL (0.0-0.7); #Lymphocytes 1.6 thou/uL (1.20-3.40); #Monocytes 0.4 thou/uL (0.11-0.59); #Neutrophils 5.7 thou/uL (1.40-6.50); %Basophils 0.5 % (0.0-1.0); %Eosinophils 2.2 % (0.0-10.0); %Monocytes 5.3 % (0.0-10.0); Hemoglobin 14.2 g/dL (14.0-18.0); Mean Corpuscular HGB CONC 32.3 g/dL (32.0-36.0); Mean Corpuscular Hemoglobin 29.3 pg (27.0-31.0); Mean Corpuscular Volume 90.6 fL (78.0-98.0); Mean Platelet Volume 8.8 fL (7.4-10.4); Platelet Count 134 thou/uL (130-400); RBC Distribution Width 13.6 % (11.5-14.5); Red Blood Cell (RBC) Count 4.86 mill/uL (4.70-6.10); White Blood Cell (WBC) Count 7.8 thou/uL (4.8-10.8)
[2020-08-16 11:24] LABS: ALT (SGPT) 15 U/L (8-55); AST (SGOT) 11 U/L (5-34); Albumin 3.7 g/dL (3.5-5.0); Alkaline Phosphatase 76 U/L (40-110); Anion Gap 15 mmol/L (10-20); BUN (Urea Nitrogen) 9 mg/dL (8.4-25.7); Bilirubin, Total 0.2 mg/dL (0.2-1.2); Calc. Creatinine Clearance 0 mL/min (70-130); Calcium 8.9 mg/dL (7.8-10.44); Carbon Dioxide 22 mmol/L (22-29); Chloride 105 mmol/L (98-107); Globulin 2.7 g/dL (2.4-3.5); Glucose 231 mg/dL (70-105); Protein, Total 6.4 g/dL (6.0-8.3); Sodium 138 mmol/L (136-145)
[2020-08-16] MEDS ORDERED: Morphine 4 MG/ML VIAL ONE (13:34)
[2020-08-16] MEDS ORDERED: Lorazepam 2 MG/ML VIAL ONE (13:34)
[2020-08-16] MEDS ORDERED: Ketorolac Tromethamine 30 MG/ML VIAL ONE (13:34)
[2020-08-16] MEDS ORDERED: Calcium Carbonate 500 MG ChewTAB PO PRN (14:25)
[2020-08-16] MEDS ORDERED: Cyclobenzaprine 10 MG TAB PO PRN (14:39)
[2020-08-16 15:06] LABS: Hemoglobin A1c 5.9 % (4.0-6.0)
[2020-08-16 17:08] VITALS: BMI 39.7
[2020-08-16] MEDS ORDERED: HYDROcodone/Acetaminophen 10/325 mg Tablet PO PRN (17:40)
[2020-08-16] MEDS: Gabapentin 300 MG CAP PO SCH (20:57)
[2020-08-16] MEDS ORDERED: Aripiprazole 10 MG TAB PO SCH (21:00)
[2020-08-16] MEDS ORDERED: Tamsulosin HCl 0.4 MG CAP PO SCH (21:00)
[2020-08-16] MEDS ORDERED: rOPINIRole HCl 0.25 MG TAB PO SCH (21:00)
[2020-08-16] MEDS: Morphine ER 30 MG TAB PO SCH (21:52)
[2020-08-16] MEDS ORDERED: Nicotine 14 MG PATCH TD SCH (22:00)
[2020-08-17 02:33] LABS: SARS-CoV-2 PCR by NAA Not Detected (NotDetected)
[2020-08-17] MEDS: Morphine ER 30 MG TAB PO SCH (06:13)
[2020-08-17 06:27] LABS: #Basophils 0.1 thou/uL (0.0-0.2); #Eosinphils 0.2 thou/uL (0.0-0.7); #Monocytes 0.7 thou/uL (0.11-0.59); %Basophils 0.7 % (0.0-1.0); %Eosinophils 2.7 % (0.0-10.0); %Lymphocytes 22.4 % (21.0-51.0); %Monocytes 7.7 % (0.0-10.0); %Neutrophils 66.5 % (42.0-75.0); Hemoglobin 14.3 g/dL (14.0-18.0); Mean Corpuscular HGB CONC 31.4 g/dL (32.0-36.0); Mean Corpuscular Hemoglobin 28.4 pg (27.0-31.0); Mean Corpuscular Volume 90.5 fL (78.0-98.0); Mean Platelet Volume 8.6 fL (7.4-10.4); Platelet Count 155 thou/uL (130-400); Red Blood Cell (RBC) Count 5.03 mill/uL (4.70-6.10)
[2020-08-17 06:44] LABS: Anion Gap 13 mmol/L (10-20); BUN (Urea Nitrogen) 10 mg/dL (8.4-25.7); Calc. Creatinine Clearance 170 mL/min (70-130); Calcium 9.2 mg/dL (7.8-10.44); Carbon Dioxide 26 mmol/L (22-29); Chloride 108 mmol/L (98-107); Glucose 219 mg/dL (70-105); Potassium 4.4 mmol/L (3.5-5.1); Sodium 143 mmol/L (136-145)
[2020-08-17] MEDS ORDERED: Cilostazol 100 MG TAB PO SCH (07:30)
[2020-08-17] MEDS: Gabapentin 300 MG CAP PO SCH (08:16)
[2020-08-17] MEDS ORDERED: Enoxaparin Sodium 40 MG/0.4 ML SYRINGE SC SCH (09:00)
[2020-08-17] MEDS ORDERED: Aspirin 325 mg Enteric Coated Tablet PO SCH (09:00)
[2020-08-17] MEDS ORDERED: Multivitamin W/ Minerals 1 TAB PO SCH (09:00)
[2020-08-17 11:34] VITALS: BP 112/68; TEMP 98.7
[2020-08-17] MEDS ORDERED: methylPREDNISolone Sod Succ/PF 125 MG/2 ML VIAL IVP SCH (11:45)
== END 2020-08-17 12:17 | disposition home or self-care (01) ==
LOC: ERS 09:43 → T4-B 13:42
PROVIDERS: ADMIT Neurological Surgery; ATTEND Neurological Surgery
DX: M47.26 Other spondylosis with radiculopathy, lumbar region (principal); M48.061 Spinal stenosis, lumbar region without neurogenic claudication; M48.56XA Collapsed vertebra, not elsewhere classified, lumbar region, initial encounter for fracture; M47.817 Spondylosis without myelopathy or radiculopathy, lumbosacral region; N32.89 Other specified disorders of bladder; J44.9 Chronic obstructive pulmonary disease, unspecified; F31.9 Bipolar disorder, unspecified; G25.81 Restless legs syndrome; N40.0 Benign prostatic hyperplasia without lower urinary tract symptoms; R73.03 Prediabetes; G47.33 Obstructive sleep apnea (adult) (pediatric); K21.9 Gastro-esophageal reflux disease without esophagitis; F17.210 Nicotine dependence, cigarettes, uncomplicated; E66.01 Morbid (severe) obesity due to excess calories; Z68.39 Body mass index [BMI] 39.0-39.9, adult; Z79.82 Long term (current) use of aspirin; Z79.899 Other long term (current) drug therapy; Z88.0 Allergy status to penicillin; Z88.2 Allergy status to sulfonamides; Z20.822 Contact with and (suspected) exposure to COVID-19; Z98.84 Bariatric surgery status
CPT/HCPCS: 72131; 80048; 80053; 83036; 85025 ×2; 85652; 86140; 94640; 96372; 96374; 96375 ×2; 99285; G0378 ×3; U0003; U0005; 36415; 87635; J1650; J1885; J2060; J2270; J2930; J3010; J3360; J7620

== ENCOUNTER 2020-08-22 13:41 | Outpatient (CLI) | payer MEDICARE ==
--- NOTE | 2020-08-22 14:32 | RAD ---
LUMBAR SPINE SERIES 3 VIEWS WITH FLEXION AND EXTENSION. HISTORY: Back pain that radiates down the left leg. COMPARISON: CT of lumbar spine performed 08/16/2020. FINDINGS: The bones appear demineralized. The superior end plate compression changes involving the L2 vertebra l body are similar to the prior exam. There are also some compression changes noted at the T11 level . Wires from previous stimulators are seen in the thoracic and lumbar region. I do not appreciate a ny abnormal motion on these flexion or extension views. IMPRESSION: Arthritic changes of the spine. Compression changes of T11 and L2. No abnormal motion on flexion or extension views. POS: RUFINA
== END 2020-08-22 13:42 | disposition home or self-care (01) ==
LOC: TBSIIMAG 13:41
PROVIDERS: ATTEND Neurological Surgery
DX: M48.061 Spinal stenosis, lumbar region without neurogenic claudication (principal); M47.816 Spondylosis without myelopathy or radiculopathy, lumbar region
CPT/HCPCS: 72100

== ENCOUNTER 2020-10-15 09:50 | Outpatient (CLI) | payer MEDICARE | END 2020-10-15 09:51 | disposition home or self-care (01) | LOC: NM 09:50 | PROVIDERS: ATTEND Neurological Surgery | DX: M47.26 Other spondylosis with radiculopathy, lumbar region (principal) | CPT/HCPCS: 78306; A9503 ==

== ENCOUNTER 2021-02-15 09:37 | Emergency (ER) | payer MEDICARE ==
[2021-02-15] MEDS ORDERED: Morphine 4 MG/ML VIAL ONE (12:43)
[2021-02-15] MEDS ORDERED: Ondansetron PF 4 MG/2 ML Vial ONE (12:43)
[2021-02-15] MEDS ORDERED: Ketorolac Tromethamine 30 MG/ML VIAL ONE (14:22)
== END 2021-02-15 15:55 | disposition home or self-care (01) ==
LOC: ERS 09:37
DX: S22.089A Unspecified fracture of T11-T12 vertebra, initial encounter for closed fracture (principal); K21.9 Gastro-esophageal reflux disease without esophagitis; R73.03 Prediabetes; F17.220 Nicotine dependence, chewing tobacco, uncomplicated; Z79.82 Long term (current) use of aspirin; Z79.899 Other long term (current) drug therapy; W18.30XA Fall on same level, unspecified, initial encounter
CPT/HCPCS: 70450; 72125; 72128; 72131; 96374; 96375; J1885; J2270; J2405

== ENCOUNTER 2021-03-07 | Outpatient (CLI) | payer MEDICARE | END 2021-03-07 14:20 | disposition home or self-care (01) ==

== ENCOUNTER 2021-03-22 09:00 | Outpatient (CLI) | payer MEDICARE ==
[2021-03-22] MEDS ORDERED: Iopamidol 370 76% 100 ML VIAL ONE (09:05)
== END 2021-03-22 09:01 | disposition home or self-care (01) ==
LOC: CT 09:00
PROVIDERS: ATTEND Family Medicine
DX: I73.9 Peripheral vascular disease, unspecified (principal); K76.0 Fatty (change of) liver, not elsewhere classified; Z90.49 Acquired absence of other specified parts of digestive tract
CPT/HCPCS: 75635; 82565; Q9967

== ENCOUNTER 2021-04-18 06:51 | Day surgery (SDC) | payer MEDICARE ==
[2021-04-18 07:48] VITALS: BP 127/68; TEMP 98.2
== END 2021-04-18 10:15 | disposition home or self-care (01) ==
LOC: RAD 06:51
PROVIDERS: ATTEND Neurological Surgery
PROC: B02B1ZZ Computerized Tomography (CT Scan) of Spinal Cord using Low Osmolar Contrast (ICD-10-PCS; principal; 2021-04-18)
DX: M47.26 Other spondylosis with radiculopathy, lumbar region (principal); M43.12 Spondylolisthesis, cervical region; I70.0 Atherosclerosis of aorta; M25.78 Osteophyte, vertebrae; M48.02 Spinal stenosis, cervical region; M48.061 Spinal stenosis, lumbar region without neurogenic claudication; M48.07 Spinal stenosis, lumbosacral region; N20.0 Calculus of kidney; I25.10 Atherosclerotic heart disease of native coronary artery without angina pectoris; I25.84 Coronary atherosclerosis due to calcified coronary lesion; R26.9 Unspecified abnormalities of gait and mobility; Z79.82 Long term (current) use of aspirin; Z79.84 Long term (current) use of oral hypoglycemic drugs; Z79.899 Other long term (current) drug therapy; Z88.0 Allergy status to penicillin; Z88.1 Allergy status to other antibiotic agents; Z88.2 Allergy status to sulfonamides; Z95.820 Peripheral vascular angioplasty status with implants and grafts; Z96.82 Presence of neurostimulator
CPT/HCPCS: 62305; 72126; 72129; 72132

== ENCOUNTER 2021-05-01 14:50 | Outpatient (CLI) | payer MEDICARE | END 2021-05-01 14:51 | disposition home or self-care (01) | LOC: BICRAD 14:50 | PROVIDERS: ATTEND Neurological Surgery | DX: M47.816 Spondylosis without myelopathy or radiculopathy, lumbar region (principal); M43.16 Spondylolisthesis, lumbar region | CPT/HCPCS: 72110 ==